=== PATIENT | male | born 2000 | race African-American/Black ===

== ENCOUNTER 2023-05-10 02:16 | Emergency (ER) | payer BC, OTHER ==
[~2023-05-10] VITALS: Ht 177.8 cm; Wt 65.1 kg
[2023-05-10] MEDS ORDERED: methylPREDNISolone SOD SUCC 125 MG/2 ML VL IM ONE (02:45)
[2023-05-10] MEDS ORDERED: diphenhdrAMINE HCL 50 MG/1 ML VL IM ONE (02:45)
[2023-05-10] MEDS ORDERED: DIPH25CA66 PO (03:43)
[2023-05-10] MEDS ORDERED: PRED20TA2 PO (03:43)
[2023-05-10] MEDS ORDERED: EPIN0.3I24 IJ (04:00)
[2023-05-10 04:39] VITALS: BP 124/77
== END 2023-05-10 04:34 | disposition home or self-care (01) ==
LOC: ER 02:16
DX: T78.1XXA Other adverse food reactions, not elsewhere classified, initial encounter (principal); Z79.899 Other long term (current) drug therapy; Z98.890 Other specified postprocedural states; X58.XXXA Exposure to other specified factors, initial encounter
CPT/HCPCS: 96372; 99284; J1200; J2930